=== PATIENT | female | born 1995 | race American Indian/Alaskan Native ===

== ENCOUNTER 2019-11-13 19:57 | Emergency (ER) | payer OTHER ==
[2019-11-13 21:48] VITALS: BP 157/89
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
[2019-11-13 23:49] LABS: Basophils % (Auto) 0.5 % (0.0-1.8); Eosinophils # (Auto) 0.2 K/mm3 (0.0-0.4); Eosinophils % (Auto) 3.4 % (0.0-4.3); Hematocrit 31.1 % (30.3-42.9); Lymphocytes # (Auto) 1.7 K/mm3 (1.2-5.4); Lymphocytes % (Auto) 26.7 % (13.4-35.0); Mean Corpuscular HGB Conc 35 % (30-34); Mean Corpuscular Volume 90 fl (79-97); Monocytes # (Auto) 0.5 K/mm3 (0.0-0.8); Monocytes % (Auto) 8.5 % (0.0-7.3); Platelet Count 307 K/mm3 (140-440); Red Blood Count 3.48 M/mm3 (3.65-5.03); Red Cell Distribution Width 15.2 % (13.2-15.2)
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
[2019-11-14 00:21] LABS: BUN/Creatinine Ratio 27; Blood Urea Nitrogen 19 mg/dL (7-17)
[2019-11-14 00:22] LABS: Alanine Aminotransferase 13 units/L (7-56); Albumin 4.5 g/dL (3.9-5); Calcium 9.3 mg/dL (8.4-10.2); Hemolysis Index 8
[2019-11-14] MEDS ORDERED: diphenhydrAMINE 50 MG/ML VIAL IV ONE (00:38)
[2019-11-14] MEDS ORDERED: KETOROLAC 30 MG/1 ML INJ IV ONE (00:38)
[2019-11-14] MEDS ORDERED: METOCLOPRAMIDE 10 MG/2 ML INJ IV ONE (00:38)
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
[2019-11-14 01:51] LABS: HCG Qualitative,Urine Negative (Negative)
== END 2019-11-14 02:18 | disposition home or self-care (01) ==
LOC: ED 19:57
DX: R51 Headache (principal); I10 Essential (primary) hypertension; D64.9 Anemia, unspecified
CPT/HCPCS: 36415; 70450; 80053; 81025; 85025; 96374; 96375; 99284; J1200; J1885; J2765